=== PATIENT | male | born 1960 | race Caucasian/White ===

== ENCOUNTER → 2020-03-07 10:58 | Outpatient (BNVA) | payer SELFPAY | PROVIDERS: Family Provider Nurse Practitioner Family; PCP Nurse Practitioner Family; Visit Provider Emergency Medicine | DX: Z20.828 Contact with and (suspected) exposure to other viral communicable diseases (principal) | CPT/HCPCS: 87635 ==

== ENCOUNTER 2020-08-13 14:14 | Observation (INO) | payer SELFPAY ==
[2020-08-13] VITALS (16 sets, daily range): BP systolic 103–129; BP diastolic 61–81; PULSE 92–108; RESP 18–25; TEMP 36.3–37.6; O2SAT 91–99; BMI 27.4
--- NOTE | 2020-08-13 14:33 | CTR_ITS ---
PROCEDURE INFORMATION: Exam: CT Abdomen And Pelvis With Contrast Exam date and time: 08/13/2020 2:33 PM Age: 59 years old Clinical indication: Abdominal pain; Localized; Lower; Additional info: Sudden onset severe abd pain TECHNIQUE: Imaging protocol: Computed tomography of the abdomen and pelvis with contrast. Total images: 218 Radiation optimization: All CT scans at this facility use at least one of these dose optimization techniques: automated exposure control; mA and/or kV adjustment per patient size (includes targeted exams where dose is matched to clinical indication); or iterative reconstruction. Contrast material: OMNI 300; Contrast volume: 95 ml; Contrast route: INTRAVENOUS (IV); COMPARISON: CR XR chest 1V portable [id number] 08/13/2020 4:01 PM RADIATION DOSE METRICS: Total DLP (mGy-cm): 786.93 FINDINGS: Lungs: Limited assessment of the lung bases fails to reveal evidence for active cardiopulmonary process. Liver: No visible hepatic mass or cystic structure. Gallbladder and bile ducts: Two small gallstones averaging 5 mm each. No gallbladder wall thickening or pericholecystic fluid. No intra or extrahepatic biliary ectasia. Pancreas: Pancreas is unremarkable. No visible pancreatic ductal ectasia. Spleen: Spleen unremarkable. Adrenal glands: Adrenal glands unremarkable. Kidneys and ureters: No hydronephrosis or perinephric fluid bilaterally. Simple right renal cortical cysts the largest inferior pole maximum diameter 28 mm. No follow-up recommended. No visible nephrolithiasis bilaterally. No visible ureterolithiasis. Stomach and bowel: Mild diverticulosis coli without visible evidence for acute diverticulitis. Nonobstructive bowel pattern. Appendix: Findings of acute uncomplicated appendicitis. The appendix is inflamed without abscess or extraluminal gas. Mild periappendiceal fat inflammatory response. Intraperitoneal space: No visible pneumoperitoneum or intraperitoneal ascites. Vasculature: Portal vein patent. The abdominal aorta is nonaneurysmal. Lymph nodes: Unremarkable. No enlarged lymph nodes. Urinary bladder: Urinary bladder unremarkable. Reproductive: Mild prostate hypertrophy. Bones/joints: Pectus excavatum with mediastinal shift to the right. No visible active or acute osseous pathology. Soft tissues: Bilateral inguinal hernias containing fat only. Other findings: No visible significant adynamic or reactive ileus. CT/CT abdomen pelvis w con* [id number] IMPRESSION: 1. Findings of acute uncomplicated appendicitis. The appendix is inflamed without abscess or extraluminal gas. Mild periappendiceal fat inflammatory response. 2. Cholelithiasis. 3. Mild diverticulosis coli without visible evidence for acute diverticulitis. COMMENTS: Consistent with the [employer]'s Incidental Findings Committee white paper (J Am Sangeeta Radiol 2018): Any incidental renal lesion less than 1 cm or classified as too small to characterize, or any incidental cystic renal lesion characterized as simple-appearing, is likely benign. No follow-up imaging is recommended for these lesions per consensus recommendations based on imaging criteria. Radiation Dose CTDIVOL = (mGy): DLP = 786.93 (mGy-cm)
--- NOTE | 2020-08-13 14:34 | W.ED.ABDPA2 ---
HPI - Abdominal Pain General: Chief Complaint: Abdominal Pain Stated Complaint: lower abdominal pain Time Seen by Provider: 08/13/20 14:30 History of Present Illness: HPI narrative: Patient arrived via ambulance with complaint of severe sudden onset abdominal pain that started at 0 300 this morning with no relief. Patient did receive some Zofran morphine ambulance he said that helped very little. Complains about pain being suprapubic area. Denies any health problems. Says bowel and bladder seem to be working fine denies fever chills. MD elicited complaint: abdominal pain Pertinent past history: none Onset (ago): hour(s) Pain Consistency: constant Location: Suprapubic Severity: severe Quality: aching Radiation: none Migration to: no migration Exacerbating factors: movement Relieving factors: nothing Associated Symptoms: Reports nausea; Denies chills and fever(s) Review of Systems Const: Denies: fever(s), chills or body aches Eyes: Denies: change in vision or blurry vision ENMT: Denies: throat pain or nasal congestion Card: Denies: chest pain or dyspnea on exertion Resp: Denies: dyspnea, productive cough or non-productive cough GI: Reports: abdominal pain and nausea : Denies: difficulty urinating Musc: Denies: extremity pain Skin/Breast: Denies: rash Neuro: Denies: headache(s) Psych: Denies: anxiety or depression David/Lymph: Denies: easy bruising [facility] ED PFSH: Surgical History (Updated 08/13/20 @ 18:04 by Bebeto Sal MD) S/P laparoscopic appendectomy (08/13/20) S/P nasal surgery Physical Exam Const: COMMON NORMALS: no acute distress, average body habitus and patient oriented x3 HENMT: COMMON NORMALS: normocephalic HEAD & SCALP: normal to inspection and normocephalic FACE & SINUS: normal facial exam Eye: COMMON NORMALS: conjunctivae normal GENERAL EYE: appearance normal, both eyes and all related structures CONJUNCTIVA: Yes conjunctivae normal Neck/C-Spine: COMMON NORMALS: no JVD Chest: COMMONS NORMALS: normal inspection of the chest Resp: COMMON NORMALS: normal respiratory effort and clear to auscultation bilaterally AUSCULTATION: clear to auscultation bilaterally Cardio: COMMON NORMALS: no JVD, regular rate and regular rhythm RATE: regular rate RHYTHM: regular rhythm GI: AUSCULTATION: Yes Hypoactive bowel sounds present PALPATION: Yes Tenderness to palpation present (GI) (Diffuse tenderness more centered suprapubic area) PERCUSSION: dullness to percussion (Tenderness with percussion) Extremity: COMMON NORMALS: normal to inspection and full ROM Neuro: COMMON NORMALS: patient oriented x3 Course Vital Signs: Vital signs: Vital Signs Temperature 98.4 F 08/14/20 11:15 Pulse Rate 78 08/14/20 11:15 Respiratory Rate 18 08/14/20 11:15 Blood Pressure 112/69 08/14/20 11:15 Pulse Oximetry 96 08/14/20 11:15 MDM - Abdominal Pain MDM Narrative: Medical decision making narrative: After much discussion with family and patient patient is inclined to go to surgery Dr. Paul was contacted Dr. Rivera said he will be taken patient to surgery. Lab Data: Labs: Lab Results 08/13/20 08/13/20 08/13/20 Range/Units 15:04 15:04 16:23 WBC 17.0 H (4.0-10.0) 10^3/ uL RBC 4.47 (4.1-5.3) 10^6/u L Hgb 13.4 (11.7-16.6) g/dL Hct 39.4 L (42.0-52.0) % MCV 88.1 (80-94) fL MCH 30.0 (28.0-34.0) pg MCHC 34.0 (30.0-36.0) g/dL RDW 12.7 (12.1-15.1) % Plt Count 274 (130-400) 10^3/c mm MPV 9.4 (7.4-10.4) fL Neut % (Auto) 91.5 % Lymph % (Auto) 4.1 % Blount % (Auto) 3.8 % Eos % (Auto) 0.0 % Baso % (Auto) 0.3 % Neut # (Auto) 15.55 H (1.8-7.7) 10^3/u L Lymph # (Auto) 0.7 L (0.8-4.8) 10^3/u L Blount # (Auto) 0.7 (0.2-0.9) 10^3/u L Eos # (Auto) 0.0 (0.0-0.8) 10^3/u L Baso # (Auto) 0.1 (0.0-0.1) 10^3/u L Nucleated RBC % (a uto) 0 % Nucleated RBCs # 0.0 /100WBC PT (12.1-14.9) SECO NDS INR (0.8-1.2) APTT (23.9-36.7) SECO NDS Sodium 138 (136-145) mmol/L Potassium 3.4 L (3.5-5.1) mmol/L Chloride 104 (98-107) mmol/L Carbon Dioxide 21 L (22-29) mmol/L Anion Gap 16.4 (5-19) BUN 11 (8-23) mg/dL Creatinine 0.7 (0.7-1.2) mg/dL GFR Calculation 115.0 (90-130) mL/min Glucose 149 H (65-115) mg/dL Calculated Osmolal ity 288 (285-295) mOsm/k g Lactic Acid (0.5-2.2) mmol/L Calcium 7.9 L (8.5-10.5) mg/dL Total Bilirubin 1.1 (0.15-1.2) mg/dL AST 17 (0-40) U/L ALT 17 (0-41) U/L Alkaline Phosphata se 76 (40-130) IU/L Total Protein 6.5 L (6.6-8.7) g/dL Albumin 3.9 (3.5-5.2) g/dL Globulin 2.6 (1.3-4.6) g/dL Lipase 25 (13-60) U/L Urine Color Yellow (Yellow) Urine Appearance Clear (CLEAR) Urine pH 8 H (5-7) Ur Specific Gravit y 1.010 (1.005-1.030) Urine Protein Neg (Negative) Urine Glucose (UA) Norm (Normal) Urine Ketones 2+ H (Negative) Urine Blood Neg (Negative) Urine Nitrate Negative (Negative) Urine Bilirubin Neg (Negative) Prot Sulfosalicyli c Acd Negative (Negative) Urine Urobilinogen Norm (Negative) mg/dL Ur Leukocyte Dolores ase Negative (Negative) 08/13/20 08/13/20 Range/Units 16:34 17:00 WBC (4.0-10.0) 10^3/ uL RBC (4.1-5.3) 10^6/u L Hgb (11.7-16.6) g/dL Hct (42.0-52.0) % MCV (80-94) fL MCH (28.0-34.0) pg MCHC (30.0-36.0) g/dL RDW (12.1-15.1) % Plt Count (130-400) 10^3/c mm MPV (7.4-10.4) fL Neut % (Auto) % Lymph % (Auto) % Blount % (Auto) % Eos % (Auto) % Baso % (Auto) % Neut # (Auto) (1.8-7.7) 10^3/u L Lymph # (Auto) (0.8-4.8) 10^3/u L Blount # (Auto) (0.2-0.9) 10^3/u L Eos # (Auto) (0.0-0.8) 10^3/u L Baso # (Auto) (0.0-0.1) 10^3/u L Nucleated RBC % (a uto) % Nucleated RBCs # /100WBC PT 14.30 (12.1-14.9) SECO NDS INR 1.08 (0.8-1.2) APTT 27.3 (23.9-36.7) SECO NDS Sodium (136-145) mmol/L Potassium (3.5-5.1) mmol/L Chloride (98-107) mmol/L Carbon Dioxide (22-29) mmol/L Anion Gap (5-19) BUN (8-23) mg/dL Creatinine (0.7-1.2) mg/dL GFR Calculation (90-130) mL/min Glucose (65-115) mg/dL Calculated Osmolal ity (285-295) mOsm/k g Lactic Acid 2.3 H (0.5-2.2) mmol/L Calcium (8.5-10.5) mg/dL Total Bilirubin (0.15-1.2) mg/dL AST (0-40) U/L ALT (0-41) U/L Alkaline Phosphata se (40-130) IU/L Total Protein (6.6-8.7) g/dL Albumin (3.5-5.2) g/dL Globulin (1.3-4.6) g/dL Lipase (13-60) U/L Urine Color (Yellow) Urine Appearance (CLEAR) Urine pH (5-7) Ur Specific Gravit y (1.005-1.030) Urine Protein (Negative) Urine Glucose (UA) (Normal) Urine Ketones (Negative) Urine Blood (Negative) Urine Nitrate (Negative) Urine Bilirubin (Negative) Prot Sulfosalicyli c Acd (Negative) Urine Urobilinogen (Negative) mg/dL Ur Leukocyte Dolores ase (Negative) Discharge Plan Discharge Admit Provider: Bebeto Sal Condition: Stable Coding Level of Care Code ED Substitute School Nurse for Chg Fwd Exam Comprehensive
[2020-08-13] MEDS: sodium chloride 0.9% 1,000 ML 999 ML IV (14:35)
[2020-08-13] MEDS: ondansetron 2 mg/ML SDV 2 mL 4 MG IVP (14:42)
[2020-08-13] MEDS: morphine 4 mg/mL SDV 1 mL IVP (14:42)
[2020-08-13 15:12] LABS: Basophils # 0.1 10^3/uL (0.0-0.1); Basophils % 0.3 %; Hematocrit 39.4 % (42.0-52.0); Hemoglobin 13.4 g/dL (11.7-16.6); Lymphocytes # 0.7 10^3/uL (0.8-4.8); Lymphocytes % 4.1 %; Mean Corpuscular Volume 88.1 fL (80-94); Mean Platelet Volume 9.4 fL (7.4-10.4); Monocytes # 0.7 10^3/uL (0.2-0.9); Monocytes % 3.8 %; Neutrophils # 15.55 10^3/uL (1.8-7.7); Neutrophils % 91.5 %; Nucleated Red Blood Cells % 0 %; Platelet Count 274 10^3/cmm (130-400); Red Blood Count 4.47 10^6/uL (4.1-5.3); Red Cell Distribution Width 12.7 % (12.1-15.1)
[2020-08-13 15:43] LABS: Alanine Aminotransferase 17 U/L (0-41); Albumin Level 3.9 g/dL (3.5-5.2); Alkaline Phosphatase 76 IU/L (40-130); Anion Gap 16.4 (5-19); Aspartate Amino Transferase 17 U/L (0-40); Blood Urea Nitrogen 11 mg/dL (8-23); Calcium 7.9 mg/dL (8.5-10.5); Carbon Dioxide 21 mmol/L (22-29); Chloride 104 mmol/L (98-107); Globulin 2.6 g/dL (1.3-4.6); Glucose 149 mg/dL (65-115); Lipase 25 U/L (13-60); Osmolality Calculated 288 mOsm/kg (285-295); Potassium 3.4 mmol/L (3.5-5.1); Sodium 138 mmol/L (136-145); Total Bilirubin 1.1 mg/dL (0.15-1.2); Total Protein 6.5 g/dL (6.6-8.7)
--- NOTE | 2020-08-13 16:02 | XR_ITS ---
WS: [id number] Portable AP upright chest, 08/13/2020 Clinical Data: decreased Sat Comparison: None. Findings: No nodules, masses or effusions are seen. The heart is normal. The pulmonary vascularity is not increased. No pneumonia or pneumothorax is seen. There is deformity with slight loss of left kati g volume of the upper left chest involving the left third through fifth ribs. There is a shift of th e heart and mediastinum from left to right. XR/XR chest 1V portable [id number] Impression: Negative for acute cardiopulmonary disease.
[2020-08-13] MEDS: iohexol 300 mg/mL 100 mL Btl IV (16:14)
[2020-08-13 16:51] LABS: Add Urine Microscopic? NO; Charge for UA Resulting for Rev
[2020-08-13 17:07] LABS: Bilirubin Urine Neg (Negative); Blood Urine Neg (Negative); Glucose Urine UA Norm (Normal); Ketones Urine 2+ (Negative); Leukocyte Esterase Urine Negative (Negative); Nitrate Urine Negative (Negative); Protein Urine Neg (Negative); Sulfosalicylic Acid Urine Negative (Negative); Urine Appearance Clear (CLEAR); Urine Color Yellow (Yellow); Urobilinogen Urine Norm (Negative); pH Urine 8 (5-7)
--- NOTE | 2020-08-13 17:42 | ANES.PREANE2 ---
Pre-Anesthetic Assessment Pre-Anesthetic Assessment: Height/Weight: Height 1.57 m Weight 68.039 kg Temp Pulse Resp BP Pulse Ox 98.9 F 99 18 108/67 95 08/13/20 14:15 08/13/20 16:00 08/13/20 16:00 08/13/20 16:00 08/13/20 16:00 Preop Diagnosis: Acute appendicitis Proposed Procedure: Operation Date: 08/13/20 18:20 Proposed Procedures p Laparoscopic Appendectomy(Not Applicable) - Bebeto Sal MD Familial anesthetic complications: Took awhile to wake up after a nose surgery in his 20s Was Beta Ashley taken within 24 hours: N/A Was Clonidine taken within 24 hours: N/A Last intake: Intake Last Liquid Date 08/13/20 Last Liquid Time 11:00 (tea, no milk/cream) Last Solid Date 08/12/20 Last Solid Time 18:00 Social: Social History: No alcohol and No tobacco Exam: Pre-Anes Outpt Exam: alert, oriented x 3, clear to auscultation bilaterally and regular rate & rhythm Airway: Cervical ROM: WNL MP: 4 Dentition: Full CV/HEM: Comments: Dextrocardia (mirror-heart/right sided heart) no functional limitations- Will reverse ECG placement Anesthetic Plan: ASA status: 1E Anesthesia: General Risk of > 500 ml blood loss (7ml/kg in children): No Data Anesthesia CBC & Chem 7: 08/13/20 15:04 08/13/20 15:04 Other Labs: Laboratory Results - last 48 hr 08/13/20 08/13/20 08/13/20 15:04 15:04 16:23 WBC 17.0 H RBC 4.47 Hgb 13.4 Hct 39.4 L MCV 88.1 MCH 30.0 MCHC 34.0 RDW 12.7 Plt Count 274 MPV 9.4 Neut % (Auto) 91.5 Lymph % (Auto) 4.1 Lipscomb % (Auto) 3.8 Eos % (Auto) 0.0 Baso % (Auto) 0.3 Neut # (Auto) 15.55 H Lymph # (Auto) 0.7 L Lipscomb # (Auto) 0.7 Eos # (Auto) 0.0 Baso # (Auto) 0.1 Nucleated RBC % (auto) 0 Nucleated RBCs # 0.0 Sodium 138 Potassium 3.4 L Chloride 104 Carbon Dioxide 21 L Anion Gap 16.4 BUN 11 Creatinine 0.7 GFR Calculation 115.0 Glucose 149 H Calculated Osmolality 288 Calcium 7.9 L Total Bilirubin 1.1 AST 17 ALT 17 Alkaline Phosphatase 76 Total Protein 6.5 L Albumin 3.9 Globulin 2.6 Lipase 25 Urine Color Yellow Urine Appearance Clear Urine pH 8 H Ur Specific [place] 1.010 Urine Protein Neg Urine Glucose (UA) Norm Urine Ketones 2+ H Urine Blood Neg Urine Nitrate Negative Urine Bilirubin Neg Prot Sulfosalicylic Acd Negative Urine Urobilinogen Norm Ur Leukocyte Esterase Negative Cardiac Studies: No Data to Display
[2020-08-13 17:43] LABS: INR 1.08 (0.8-1.2)
[2020-08-13 17:44] LABS: Partial Thromboplastin Time 27.3 SECONDS (23.9-36.7)
--- NOTE | 2020-08-13 17:57 | P.HP_ITS ---
Providers/Chief Complaint Chief Complaint: lower abdominal pain History of Present Illness Bal Lam is a 59 year old male to the ER after he woke up with abdominal pain this morning. Patient did not have any symptoms when he went to bed last night. He states that the pain progressively got worse during the course of the day and this was associated with nausea. Patient denies any vomiting, fevers, chills. No constipation or diarrhea. He initially thought it was secondary to yeast since his daughter had baked recently and he had a similar episode in the past. The pain subsequently never subsided and localized to the right lower quadrant, worse with physical activity, no relieving factors. Review of Systems General: Reports: 10 or more systems reviewed and unremarkable except in HPI and below Medications/Allergies Home Medications Medication Instructions Recorded Confirmed Last Taken Type ibuprofen 800 mg PO PRN 08/13/20 08/13/20 Unknown History multivitamin 1 tab PO DAILY 08/13/20 08/13/20 Unknown History Allergies Allergy/AdvReac Type Severity Reaction Status Date / Time No Known Allergies Allergy Verified 08/13/20 14:37 PFSH Acute PFSH: Surgical History S/P nasal surgery Vitals/I&O/Wt Last Vital Signs Temp 98.9 F 08/13/20 14:15 Pulse 99 08/13/20 16:00 Resp 18 08/13/20 16:00 BP 108/67 08/13/20 16:00 Pulse Ox 95 08/13/20 16:00 Weight last 48 hrs Weight 150 lb Weight 150 lb Physical Exam Narrative: EXAM NARRATIVE: HEENT: Normocephalic Eye: Sclera /conjunctiva normal Respiratory and chest: Bilateral clear breath sounds on auscultation Cardiovascular: Normal S1 and S2 heart sounds Abdomen: Soft to palpation, tender right lower quadrant, with guarding, no rigidity Neurological: Oriented to place person and time Skin: Intact, no lesions appreciated on gross exam Data : 08/13/20 15:04 08/13/20 15:04 A&P Assessment and plan (1) Acute appendicitis: 59-year-old male with 1 day history of right lower quadrant pain and nausea. WBC was noted to be 17. CT abdomen and pelvis showed acute appendicitis without any evidence of perforation Plan for laparoscopic possible open appendectomy Procedure, risks, benefits and alternatives have been discussed with the patient who wishes to proceed with surgery. Status: Acute Attestations Medical Necessity Statement*: Appendicitis requiring surgery Coding Level of Care Code Acute Canvas Goods Maker for [facility] Steve Diagnoses Acute appendicitis K35.80
[2020-08-13 18:20] LABS: Lactic Sepsis W/Reflex 2.3 mmol/L (0.5-2.2)
[2020-08-13 18:30] LABS: Reflex Lactate Order REFLEX LACTIC ORDERD
[2020-08-13] MEDS: piperacillin-tazobactam 3.375 GM in sodium chloride 0.9% (plus) 50 ML IV (19:28)
--- NOTE | 2020-08-13 20:24 | PM.OP ---
Operative Report Date of procedure: August 13, 2020 Pre-op Diagnosis: Acute appendicitis Post-op Diagnosis: Acute separative appendicitis Procedure Done: Laparoscopic appendectomy Specimens removed/disposition: Appendix Surgeon: Bebeto Sal Anesthesia: General Condition: stable Disposition: PACU Procedure: The patient was taken to the Operating Room and intubated under general anesthesia after antibiotic had been administered. Using a 15 blade, a 1-cm infraumbilical incision was made and using open Luann technique, the peritoneal cavity was entered. A 12mm port with balloon was placed and 15 mm of pneumoperitoneum was created and 10-mm 30 degree scope was introduced. Two separate 5mm ports were placed in the suprapubic area and left lower quadrant under direct visualization. The appendix was noted in the right lower quadrant and appeared acutely inflamed. There was purulent fluid noted in the paracolic gutter as well as in the pelvis. This was irrigated and suctioned out.the inflamed appendix was adherent to the lateral wall of the cecum and this was mobilized using suction welding equipment sales representative. The mesoappendix was divided using LigaSure which had been opened by mistake. Using [place] forceps, an opening was made in the mesoappendix near the base of the appendix. An Endo CARLOS stapler 45mm long 3.5mm blue load was introduced to divide the appendix at it's base. There might have been a small perforation at the base of the appendix. There was no bleeding noted and the staple line appeared intact. The right lower quadrant was irrigated with saline and an EndoCatch bag was introduced to remove the appendix. All three ports were removed under direct visualization and there was no bleeding noted on the port sites. 10 cc of 0.5% Marcaine was infiltrated at the port sites. The fascia at the umbilical port was closed using figure of eight 0-Vicryl sutures and subcutaneous tissue was approximated using 3-0 Vicryl and skin at all 3 port sites was closed using 4-0 Monocryl and Dermabond. The patient was extubated and transferred to recovery room in stable condition.
--- NOTE | 2020-08-13 20:40 | SUR.PHASEI ---
2032: patient into pacu with nc at 3L and sats at 93%. patient wakes but is drowsy. no pain per faces. dermabond to 4 sites.
[2020-08-13] MEDS: fentaNYL 50 mcg/mL INJ 2mL IVP (20:57)
--- NOTE | 2020-08-13 21:04 | SUR.PHASEI ---
2056: patient states he has pain in abd, patient still drowsy. medicated per orders. 2104: patient appears to be resting comfortably.
--- NOTE | 2020-08-13 21:39 | SUR.PHASEI ---
2119: patient taken to 278-2. patient drowsy but wakes. on 3L nc. dermabond to 4 sites intact. belongings taken to room with patient. abd soft.
[2020-08-14] VITALS (9 sets, daily range): BP systolic 106–125; BP diastolic 65–75; PULSE 71–87; RESP 16–20; TEMP 36.6–37; O2SAT 94–97
[2020-08-14] MEDS: D5-NS 0.45% + KCL 20 mEq 20 MEQ/1,000 ML BAG 100 MEQ IV ×3 (00:17→19:40)
[2020-08-14] MEDS: HYDROcodone-acetaminophen 5-325 mg Tablet 1 TAB PO ×3 (00:43→19:21)
[2020-08-14 02:50] LABS: Basophils % 0.2 %; Hematocrit 38.4 % (42.0-52.0); Hemoglobin 12.9 g/dL (11.7-16.6); Lymphocytes # 0.5 10^3/uL (0.8-4.8); Lymphocytes % 3.3 %; Mean Corpuscular HGB Conc 33.6 g/dL (30.0-36.0); Mean Corpuscular Hemoglobin 30.1 pg (28.0-34.0); Mean Corpuscular Volume 89.5 fL (80-94); Mean Platelet Volume 9.4 fL (7.4-10.4); Monocytes # 0.3 10^3/uL (0.2-0.9); Neutrophils # 15.55 10^3/uL (1.8-7.7); Nucleated Red Blood Cells % 0 %; Platelet Count 278 10^3/cmm (130-400); Red Blood Count 4.29 10^6/uL (4.1-5.3); Red Cell Distribution Width 13.4 % (12.1-15.1); White Blood Count 16.5 10^3/uL (4.0-10.0)
[2020-08-14 03:13] LABS: Anion Gap 16.2 (5-19); Blood Urea Nitrogen 9 mg/dL (8-23); Calcium 7.6 mg/dL (8.5-10.5); Carbon Dioxide 21 mmol/L (22-29); Chloride 107 mmol/L (98-107); Glomerular Filtration Rate 86.1 mL/min (90-130); Glucose 196 mg/dL (65-115); Osmolality Calculated 294 mOsm/kg (285-295); Potassium 4.2 mmol/L (3.5-5.1); Sodium 140 mmol/L (136-145)
--- NOTE | 2020-08-14 05:05 | PC.NURSE ---
Straight Cath: Attempted and not successful. Obtained coude but patient is refusing to allow assembly instructions writer to try again at this time.
[2020-08-14] MEDS: piperacillin-tazobactam 3.375 GM in sodium chloride 0.9% (plus) 50 ML IV ×3 (05:15→19:39)
[2020-08-14] MEDS: sennosides-docusate Tablet 1 TAB PO ×2 (09:08→17:57)
--- NOTE | 2020-08-14 18:34 | P.PN_ITS ---
Subjective Subjective: Interval history: Patient denies significant abdominal pain, nausea or vomiting, tolerating full liquid diet. No flatus or BM. Vitals/I&O/Wt Last Vital Signs Temp 98.5 F 08/14/20 15:27 Pulse 73 08/14/20 15:27 Resp 18 08/14/20 15:27 BP 106/65 08/14/20 15:27 Pulse Ox 95 08/14/20 15:27 08/14/20 08/14/20 08/14/20 06:59 14:59 22:59 Intake Total 935 / 985 50 / 985 Output Total 450 / 450 400 / 400 Balance -450 / 500 535 / 585 50 / 585 Weight last 48 hrs Weight 150 lb Weight 150 lb Physical Exam Narrative: EXAM NARRATIVE: Abdomen: Soft, nondistended, nontender, incision clean dry and intact Data : 08/14/20 02:36 08/14/20 02:36 A&P Assessment and plan (1) S/P laparoscopic appendectomy: Status post laparoscopic appendectomy admitted for IV antibiotics due to significant number of purulent fluid, possible perforation noted during surgery. Continue IV Zosyn Continue IV fluids Check WBC tomorrow Advance to GI soft diet today Senna S for bowel regimen If his WBC is trending down to normal hopefully can go home tomorrow on oral antibiotics. Status: Acute Attestations Medical Necessity Statement*: Acute appendicitis requiring 1 more night of inpatient stay for IV antibiotics Coding Level of Care Code Acute Utility Bill Complaints Investigator for Chg Fwd Diagnoses S/P laparoscopic appendectomy Z90.49
[2020-08-14] MEDS: simethicone 80 mg Chew PO (19:24)
[2020-08-15] MEDS: HYDROcodone-acetaminophen 5-325 mg Tablet 1 TAB PO ×2 (01:24→10:00)
[2020-08-15 02:54] LABS: Basophils % 0.1 %; Eosinophils % 0.1 %; Hematocrit 36.7 % (42.0-52.0); Hemoglobin 11.9 g/dL (11.7-16.6); Lymphocytes # 1.5 10^3/uL (0.8-4.8); Lymphocytes % 10.3 %; Mean Corpuscular HGB Conc 32.4 g/dL (30.0-36.0); Mean Corpuscular Hemoglobin 29.8 pg (28.0-34.0); Mean Corpuscular Volume 91.8 fL (80-94); Monocytes # 0.7 10^3/uL (0.2-0.9); Monocytes % 4.8 %; Neutrophils # 12.24 10^3/uL (1.8-7.7); Neutrophils % 84.4 %; Nucleated Red Blood Cells % 0 %; Platelet Count 265 10^3/cmm (130-400); Red Cell Distribution Width 14.1 % (12.1-15.1); White Blood Count 14.5 10^3/uL (4.0-10.0)
[2020-08-15 03:07] LABS: Anion Gap 13.2 (5-19); Blood Urea Nitrogen 9 mg/dL (8-23); Calcium 8.3 mg/dL (8.5-10.5); Carbon Dioxide 25 mmol/L (22-29); Chloride 106 mmol/L (98-107); Glomerular Filtration Rate 98.6 mL/min (90-130); Glucose 135 mg/dL (65-115); Osmolality Calculated 291 mOsm/kg (285-295); Potassium 4.2 mmol/L (3.5-5.1); Sodium 140 mmol/L (136-145)
[2020-08-15 03:20] VITALS: BP 129/76; PULSE 69; RESP 16; TEMP 36.9; O2SAT 94
[2020-08-15 04:13] VITALS: PULSE 66; RESP 17; O2SAT 95
[2020-08-15] MEDS: piperacillin-tazobactam 3.375 GM in sodium chloride 0.9% (plus) 50 ML IV (04:38)
[2020-08-15] MEDS: D5-NS 0.45% + KCL 20 mEq 20 MEQ/1,000 ML BAG 100 MEQ IV (05:24)
[2020-08-15 08:00] VITALS: BP 125/81; PULSE 76; RESP 18; TEMP 36.9; O2SAT 94
[2020-08-15] MEDS: sennosides-docusate Tablet 1 TAB PO (08:27)
[2020-08-15 11:32] VITALS: BP 151/83; PULSE 82; RESP 18; TEMP 37.1
[2020-08-15] MEDS: tamsulosin 0.4 mg Capsule PO (12:34)
--- NOTE | 2020-08-15 13:40 | PC.NURSE ---
Urinary Retention Pt c/o lower abdominal pain and pain with urination. Pt was only voiding 50-100 mL at a time. PVR bladder scan performed showing 700+ mL. Dr. Sal notified. Orders given to stop fluids, give 0.4 mg flomax, and insert Colmenares catheter to send home with pt and follow up with Dr. Soria. Pt and family reluctant to go home with Colmenares. This nurse educated pt and family on risks of not going home with a Colmenares when there was this much urinary retention. Pt was given some time to think about Colmenares placement. When this nurse reassessed pt, he had just urinated ~300 mL. PVR performed again, revealing 700+ mL. Pt agreeable to Colmenares placement, tolerated fair. Dr. Sal was contacted to clarify if he wanted the pt to go home on Flomax. Flomax rx called in to [facility] in [place] by this nurse. Follow up appointment made with Dr. Soria. Pt and family educated on Colmenares care. Daughter is a nurse and used to work as a DRIVER SERVICE TECHNICIAN on this floor. Everyone verbalized understanding and pt was discharged home.
[2020-08-15 14:06] VITALS: BP 151/83; PULSE 82; RESP 18; TEMP 37.1; O2SAT 98
--- NOTE | 2020-08-15 15:12 | PM.PN ---
Subjective Subjective: Interval history: Patient has been doing well, tolerating regular diet, denies any nausea or vomiting. He is complaining of lower abdominal pain and bladder scan showed 700 cc of urine. A Colmenares catheter was placed Vitals/I&O/Wt Last Vital Signs Temp 98.8 F 08/15/20 14:06 Pulse 82 08/15/20 14:06 Resp 18 08/15/20 14:06 BP 151/83 08/15/20 14:06 Pulse Ox 98 08/15/20 14:06 08/15/20 08/15/20 08/15/20 06:59 14:59 22:59 Intake Total 1383.333 / 3368.333 900 / 900 Output Total 250 / 925 1040 / 1040 Balance 1133.333 / 2443.333 -140 / -140 Weight last 48 hrs Weight 150 lb Physical Exam Narrative: EXAM NARRATIVE: Abdomen: Soft, minimally tender, nondistended, incision clean dry and intact Urinary Catheter Management^: Coude: Cath Placed During This Visit: yes Urinary Catheter Date of Insertion: 08/15/20 Urinary Catheter Time of Insertion: 13:23 Data : 08/15/20 01:50 08/15/20 01:50 A&P Assessment and plan (1) S/P laparoscopic appendectomy: Status post laparoscopic appendectomy admitted for IV antibiotics due to significant amount of purulent fluid, possible perforation noted during surgery. DC home today with oral antibiotics and Colmenares catheter Follow-up with Dr. Soria Status: Acute Attestations Medical Necessity Statement*: Status post appendectomy DC home today Coding Level of Care Code Acute Stationary Engineer Supervisor for [facility] Fwd Diagnoses S/P laparoscopic appendectomy Z90.49
--- NOTE | 2020-08-15 15:14 | P.DS_ITS ---
Discharge Providers Date of Admission: 08/13/20 21:15 Date of Discharge: August 15, 2020 Attending Provider at Admission: Bebeto Sal MD Attending Provider at Discharge: Bebeto Sal MD Diagnoses at Discharge Discharge Diagnosis (1) S/P laparoscopic appendectomy: Status: Acute Reason for Visit Reason for Visit: lower abdominal pain Hospital Course Hospital Course Bal Lam is a 59 year old male to the ER after he woke up with abdominal pain this morning. Patient did not have any symptoms when he went to bed last night. He states that the pain progressively got worse during the course of the day and this was associated with nausea. Patient denies any vomiting, fevers, chills. No constipation or diarrhea. He initially thought it was secondary to yeast since his daughter had baked recently and he had a similar episode in the past. The pain subsequently never subsided and localized to the right lower quadrant, worse with physical activity, no relieving factors. Patient was admitted to the hospital for IV antibiotics. At time of discharge he had been on IV antibiotics for 48 hours and his WBC was trending down. Patient is afebrile and tolerating a regular diet. His incisions are clean dry and intact. On the day of discharge he was noted to have 700 cc on bladder scan and therefor e a Colmenares catheter was placed since this was a second episode of urinary retention during current hospitalization. Physical Exam Urinary Catheter Management^: Coude: Cath Placed During This Visit: yes Urinary Catheter Date of Insertion: 08/15/20 Urinary Catheter Time of Insertion: 13:23 Discharge Data Data Completed and Pending: Completed Studies During Hospitalization Category Date Time Status CT abdomen pelvis w con* [id number] Stat Cat Scan 08/13/20 14:33 Completed XR chest 1V naomi ble [id number] Stat Exams 08/13/20 16:02 Completed Pathology: Surgic al [PTH] Routine Pth 08/13/20 20:18 Completed Pending at discharge Category Date Time Status ES surgery / GI i mages Routine Exams 08/13/20 19:13 Taken Labs from last 24 hours 08/15/20 08/15/20 01:50 01:50 WBC 14.5 H RBC 4.00 L Hgb 11.9 Hct 36.7 L MCV 91.8 MCH 29.8 MCHC 32.4 RDW 14.1 Plt Count 265 MPV 10.0 Neut % (Auto) 84.4 Lymph % (Auto) 10.3 [place] % (Auto) 4.8 Eos % (Auto) 0.1 Baso % (Auto) 0.1 Neut # (Auto) 12.24 H Lymph # (Auto) 1.5 [place] # (Auto) 0.7 Eos # (Auto) 0.0 Baso # (Auto) 0.0 Nucleated RBC % (a uto) 0 Nucleated RBCs # 0.0 Sodium 140 Potassium 4.2 Chloride 106 Carbon Dioxide 25 Anion Gap 13.2 BUN 9 Creatinine 0.8 GFR Calculation 98.6 Glucose 135 H Calculated Osmolal ity 291 Calcium 8.3 L Vitals: Last Vital Signs Temp 98.8 F 08/15/20 14:06 Pulse 82 08/15/20 14:06 Resp 18 08/15/20 14:06 BP 151/83 08/15/20 14:06 Pulse Ox 98 08/15/20 14:06 Discharge Plan Discharge Patient Disposition: Home Condition: Stable Prescriptions: New hydrocodone-acetaminophen 5-325 mg tablet 1 tab PO Q6H PRN (Reason: pain) Qty: 20 RF: 0 Zofran 4 mg tablet 4 mg PO Q6H PRN (Reason: nausea and vomiting) Qty: 20 RF: 0 Colace 100 mg capsule 100 mg PO BID Qty: 30 RF: 0 Flagyl 500 mg tablet 500 mg PO Q8H 5 Days Qty: 15 RF: 0 levofloxacin 750 mg tablet 750 mg PO DAILY 5 Days RF: 0 Continued multivitamin Tablet 1 tab PO DAILY RF: 0 ibuprofen 200 mg Tablet 800 mg PO PRN RF: 0 Discharge Orders: Discharge Order (Routine); Ordered 08/15/20 Ordered By: Bebeto Sal Referrals: Andi Soria MD [Physician] - 08/28/20 7:30 am Bebeto Sal MD [Physician] - 09/15/20 8:35 am (You have an appointment with Dr. Sal on September 07 at 8:35.) Patient Instructions: Hydrocodone/Acetaminophen (By mouth), Metronidazole (By mouth), Laxative, Stool Softeners (By mouth), Ondansetron (By mouth), Levofloxacin (By mouth), Tamsulosin (By mouth), Appendicitis (GEN), Colmenares Catheter Placement and Care (DC), Laparoscopic Appendectomy (DC), Opioid Safety Activity Restrictions/Additional Instructions: Diet Advance to normal diet as tolerated, increase fluid intake as much as possible. Activity Avoid strenuous activity for 2 weeks but continue with daily activities including walking as tolerated. Do not lift more than 10 pounds for 2 weeks Return to work/school You can return to work/ school whenever you feel ready as long as you don?t have to lift more than 10 pounds at work. If you have paperwork that needs to be completed for time off from work, please contact my office Driving You can resume driving once you stop using narcotic pain medications, and transition to non-opioid pain medications like Tylenol, Motrin, Aleve, etc. Medications Pain Take opioid pain medications as prescribed and transition to non-opioid pain medications like Tylenol, Motrin, Aleve etc. over the next few days. The goal of the pain medications is to make the pain bearable and not to be pain free since you recently had surgery. Resume all home medications after surgery as per the medication reconciliation list Nausea Nausea is common after surgery, take nausea medications as needed and stay on a liquid bland diet until nausea resolves. Constipation The combination of surgery, anesthesia and pain medications can result in constipation. Take stool softeners as prescribed. If you do not have a bowel movement in 3 days, please take an [id number] laxative like MiraLAX to address the constipation. Shower It is ok to shower but avoid getting the wound wet for 48 hours after surgery. Do not soak in bathtub, swimming pool or hot tub for 2 weeks. Wound care If glue has been used on your incisions after surgery, the glue on the incision will peel slowly over the next two weeks. The stitches used are dissolvable and will not need to be removed. Do not apply antibiotics or other medications on the incision Problems with the wound: you can develop some redness around the incision from bruising after surgery. If there is increasing pain, redness, tenderness around the incision with or without drainage, please contact my office to rule out an infection. Sometimes the skin at the incisions can separate, resulting in reopening of the wound. Cover the wound with antibiotic cream and sterile dressings and contact my office. Contact physician Call the office at [phone] during office hours or go the Emergency Room ?Fever to 100.4 or greater ?Shaking chills ?Pain that increases over time ?Redness, warmth, or pus draining from incision sites ?Persistent nausea or inability to take in liquids Stand Alone Forms: Work/School Release Discharge Attestations Time Spent in Discharge Care*: less than 30 min Quality Metrics Clinical Quality Measures During this hospital stay, did patient experience: None Coding Level of Care Code Acute Chg FW DC note Diagnoses S/P laparoscopic appendectomy Z90.49
== END 2020-08-15 14:07 | disposition home or self-care (01) ==
LOC: ER 16:50 → OPS 16:57 → MEDSURG 21:17
PROVIDERS: Admitting Provider Surgery; Emergency Provider Nurse Practitioner Family; Visit Provider Surgery
PROC: 0DTJ4ZZ Resection of Appendix, Percutaneous Endoscopic Approach (ICD-10-PCS; CPT 44970; principal; 2020-08-13 18:00)
DX: K35.80 Unspecified acute appendicitis (principal)
CPT/HCPCS: 36415; 51702; 51798; 71045; 74177; 80048; 80053; 81003; 83605; 83690; 85025; 85610; 85730; 88304; 96365; 96366; 96367; 96374; 96375; 99285; G0378; J0330; J1100; J2250; J2270; J2405; J2543; J2704; J2710; J3010; J3490; J7030; Q9967

== ENCOUNTER → 2020-10-20 15:10 | Outpatient (BNVA) | payer SELFPAY | PROVIDERS: PCP Urology; Visit Provider Nurse Practitioner Family | DX: R30.0 Dysuria (principal); N40.1 Benign prostatic hyperplasia with lower urinary tract symptoms; N99.89 Other postprocedural complications and disorders of genitourinary system; R31.9 Hematuria, unspecified; R33.8 Other retention of urine; N39.0 Urinary tract infection, site not specified | CPT/HCPCS: 80053; 81000; 85025 ==

== ENCOUNTER 2023-06-23 18:36 | Emergency (ER) | payer BC, SELFPAY ==
[2023-06-23] VITALS (8 sets, daily range): BP systolic 112–147; BP diastolic 68–88; PULSE 80–94; RESP 16; TEMP 36.7; O2SAT 96–99
--- NOTE | 2023-06-23 18:47 | ED_ITS ---
HPI - Male Genitourinary 2 General: Chief complaint: Urogenital-Male Stated complaint: ABD Pain Time Seen by Provider: 06/23/23 18:45 History of Present Illness: Patient has been having some lower abdominal pain and pressure for the last day or so. He is been hearing some gurgling. He gone to his primary and they checked a urine it was negative. He has been taken some Pyridium. No fevers. No nausea or vomiting. Pain in his low abdomen. More to the right than to the left. He has no known history of diverticulitis. He has never had a colonoscopy. No chest pain. No fevers. No shortness of breath. Review of Systems 2 Narrative: Constitutional symptoms: Negative except as documented in HPI. Skin symptoms: Negative except as documented in HPI. Eye symptoms: Negative except as documented in HPI. ENMT symptoms: Negative except as documented in HPI. Respiratory symptoms: Negative except as documented in HPI. Cardiovascular symptoms: Negative except as documented in HPI. Gastrointestinal symptoms: Negative except as documented in HPI. Genitourinary symptoms: Negative except as documented in HPI. Musculoskeletal symptoms: Negative except as documented in HPI. Neurologic symptoms: Negative except as documented in HPI. Psychiatric symptoms: Negative except as documented in HPI. Endocrine symptoms: Negative except as documented in HPI. PFS ED 2 PFSH: Surgical History S/P laparoscopic appendectomy (08/13/20) S/P nasal surgery Family History Mother , at age 91 No problems noted. Father , at age 77 No problems noted. Social History Smoking and tobacco/nicotine status: never used tobacco/nicotine Second hand smoke exposure: No Alcohol intake: never Substance/Drug Use: never Caregiver/support person: Yes Lives independently: Yes Household members: spouse Marital status: Current occupational status: employed Current occupation: [employer] Current gender identity: Male Special black needs: No Agree to transfusion: Yes Physical Exam 2 Narrative: EXAM NARRATIVE: General: Alert, no acute distress. Skin: Warm, dry. Head: Normocephalic, atraumatic. Neck: Supple, trachea midline. Eye: Extraocular movements are intact. Ears, nose, mouth and throat: Tacky oral mucosa Cardiovascular: Regular, Normal peripheral perfusion. Respiratory: Lungs are clear to auscultation, respirations are non-labored, breath sounds are equal, Symmetrical chest wall expansion. Gastrointestinal: Soft, some mild suprapubic tenderness,, Non distended, Normal bowel sounds. Musculoskeletal: Normal ROM, no deformity. Neurological: Alert and oriented, No focal neurological deficit observed. Psychiatric: Cooperative, appropriate mood & affect. Course 2 Vital Signs: Vital signs: Vital Signs Temperature 98.1 F 06/23/23 18:41 Pulse Rate 80 06/23/23 19:17 Respiratory Rate 16 06/23/23 19:17 Blood Pressure 136/73 06/23/23 19:17 Pulse Oximetry 97 06/23/23 19:17 Oxygen Delivery Me thod Room Air 06/23/23 18:41 MDM - Male Medical Decision Making Medical decision making: Differential diagnosis including but not limited to and based on the above HPI, review of systems and physical exam: Would have concern for UTI, urinary retention, could also have colitis or diverticulitis. He also states that he is allergic to yeast and so this could just be an upset stomach secondary to that. Orders placed to evaluate differential diagnosis based on the above differential, HPI and physical exam Bladder scan showed only 120 mL Lab Review: Laboratory results were reviewed and interpreted by myself the emergency room physician. Patient has some leukocytosis with a white count of 12. Hemoglobin is normal at 14.7. BUN and creatinine are normal at 9 and 0.8. His CRP is quite elevated at 86. His liver enzymes are not elevated. His urinalysis shows no signs of infection. CT of the abdomen pelvis with contrast: Focal inflammatory stranding surrounding a diverticulum at the junction of the sigmoid and descending colon which is consistent with diverticulitis. Radiologist does recommend follow-up and I discussed colonoscopy with the patient once this illness has resolved. This was reviewed and interpreted by myself the emergency room physician. I also reviewed the radiology report. I reviewed the patient's medical record. Reexamination: Patient remained stable. No increased work of breathing no altered mental status. We discussed diet with diverticulitis. We discussed the findings and that he needs follow-up colonoscopy. He expresses understanding. I also discussed this with his family. Assessment and plan: Diverticulitis Dehydration -IV Cipro, Flagyl and a normal saline bolus in the emergency room - Discharged home - Discussed findings and plan with patient. Answered any questions. - All laboratory values were reviewed and interpreted personally by myself, the ER physician - All imaging was reviewed and interpreted personally by myself, the ER physician. - Evaluation and treatment of this problem were appropriate in the emergency setting Lab Data 06/23/23 18:55 06/23/23 18:55 Radiology Impressions Abdomen/Pelvis CT 06/23/23 19:47 IMPRESSION: 1. Focal inflammatory stranding surrounding a diverticulum at the junction of the sigmoid and descending colon, consistent with acute diverticulitis. As an underlying malignancy cannot be entirely excluded, a follow-up examination after a course of treatment is recommended if clinically warranted. 2. Cholelithiasis without evidence of acute cholecystitis. 3. Hepatic steatosis 4. Bilateral inguinal scrotal fat hernia Laboratory Results WBC 11.75 10^3/uL (3.29-11.43) H 06/23/23 18:55 RBC 4.98 10^6/uL (3.85-5.65) 06/23/23 18:55 Hgb 14.70 g/dL (11.27-16.99) 06/23/23 18:55 Hct 43.6 % (37-53) 06/23/23 18:55 MCV 87.6 fl (82-101) 06/23/23 18:55 MCH 29.5 pg (27-33) 06/23/23 18:55 MCHC 33.7 g/dL (30-55) 06/23/23 18:55 RDW 12.8 % (12.1-15.1) 06/23/23 18:55 Plt Count 332 10^3/cmm (157-399) 06/23/23 18:55 MPV 9.5 fL (7.4-10.4) 06/23/23 18:55 Neut % (Auto) 75.9 % 06/23/23 18:55 Lymph % (Auto) 16.5 % 06/23/23 18:55 [place] % (Auto) 6.6 % 06/23/23 18:55 Eos % (Auto) 0.4 % 06/23/23 18:55 Baso % (Auto) 0.3 % 06/23/23 18:55 Neut # (Auto) 8.91 10^3/uL (1.8-7.7) H 06/23/23 18:55 Lymph # (Auto) 1.9 10^3/uL (0.8-4.8) 06/23/23 18:55 [place] # (Auto) 0.8 10^3/uL (0.2-0.9) 06/23/23 18:55 Eos # (Auto) 0.1 10^3/uL (0.0-0.8) 06/23/23 18:55 Baso # (Auto) 0.0 10^3/uL (0.0-0.1) 06/23/23 18:55 Nucleated RBC % (auto) 0 % 06/23/23 18:55 Nucleated RBCs # 0.0 /100WBC 06/23/23 18:55 Sodium 137 mmol/L (136-145) 06/23/23 18:55 Potassium 3.9 mmol/L (3.5-5.1) 06/23/23 18:55 Chloride 100 mmol/L (98-107) 06/23/23 18:55 Carbon Dioxide 23 mmol/L (22-29) 06/23/23 18:55 Anion Gap 17.9 (5-19) 06/23/23 18:55 BUN 9 mg/dL (8-23) 06/23/23 18:55 Creatinine 0.8 mg/dL (0.7-1.2) 06/23/23 18:55 GFR Calculation 97.6 mL/min (90-130) 06/23/23 18:55 Glucose 110 mg/dL (65-115) 06/23/23 18:55 Calculated Osmolality 283 mOsm/kg (285-295) L 06/23/23 18:55 Calcium 9.0 mg/dL (8.5-10.5) 06/23/23 18:55 Total Bilirubin 0.9 mg/dL (0.15-1.2) 06/23/23 18:55 AST 40 U/L (0-40) 06/23/23 18:55 ALT 64 U/L (0-41) H 06/23/23 18:55 Alkaline Phosphatase 108 U/L (40-130) 06/23/23 18:55 C-Reactive Protein 85.7 mg/L (0.0-4.9) H 06/23/23 18:55 Total Protein 8.6 g/dL (6.6-8.7) 06/23/23 18:55 Albumin 4.5 g/dL (3.5-5.2) 06/23/23 18:55 Globulin 4.1 g/dL (1.3-4.6) 06/23/23 18:55 Lipase 34 U/L (13-60) 06/23/23 18:55 Urine Color [place] (Yellow) A 06/23/23 18:55 Urine Appearance Clear (CLEAR) 06/23/23 18:55 Urine pH 7 (5-7) 06/23/23 18:55 Ur Specific [place] 1.015 (1.005-1.030) 06/23/23 18:55 Urine Protein 1+ (Negative) H 06/23/23 18:55 Urine Glucose (UA) Norm (Normal) 06/23/23 18:55 Urine Ketones 1+ (Negative) H 06/23/23 18:55 Urine Blood Neg (Negative) 06/23/23 18:55 Urine Nitrate Not tested (Negative) A 06/23/23 18:55 Urine Bilirubin 1+ (Negative) H 06/23/23 18:55 Urine Urobilinogen 4 mg/dL (Negative) H 06/23/23 18:55 Ur Leukocyte Esterase Negative (Negative) 06/23/23 18:55 Urine RBC None /hpf (0-2) 06/23/23 18:55 Urine WBC Rare /hpf (0-5) 06/23/23 18:55 Ur Squamous Epith Cells None /hpf (0-5) 06/23/23 18:55 Amorphous Sediment Not Reportable 06/23/23 18:55 Urine Bacteria None /hpf (NONE) 06/23/23 18:55 Urine Mucus None /hpf 06/23/23 18:55 All radiology interpretation(s) finalized by discharge Discharge Plan Discharge Patient Disposition: Home Clinical Impression: Diverticulitis, Dehydration Condition: Stable Prescriptions: New metronidazole 500 mg tablet 500 mg PO Q8H 10 Days Qty: 30 0RF ciprofloxacin HCl 500 mg tablet 500 mg PO BID 10 Days Qty: 20 0RF polyethylene glycol 3350 [Miralax] 17 gram/dose powder 17 g PO DAILY Qty: 510 0RF Rx Instructions: Take 1 scoop daily while taking pain medications. hydrocodone-acetaminophen 5-325 mg tablet 1 tab PO Q6H PRN (Reason: pain) Qty: 20 0RF No Action albuterol sulfate [ProAir HFA] 90 mcg/actuation HFA aerosol inhaler 2 puff inhalation QID PRN (Reason: shortness of breath or wheezing) Qty: 8.5 5RF tamsulosin 0.4 mg capsule 0.8 mg PO DAILY 90 Days Qty: 180 1RF fluconazole 150 mg tablet 150 mg PO DAILY Qty: 1 0RF phenazopyridine [Pyridium] 200 mg tablet 200 mg PO TID PRN (Reason: pain) Qty: 6 0RF Discharge Orders: Discharge ED (Routine); Ordered 06/23/23 Ordered By: Belia Betancur Referrals: Lupis Mccarthy MD [Primary Care Provider] - 4-7 days Discharge Diet: As Directed Discharge Activity: Increase activity as tolerated Patient Instructions: Diverticulitis (ED), Diverticulitis Diet (ED), Opioid Safety Activity Restrictions/Additional Instructions: Take antibiotics as instructed. Thank you for choosing [facility] for your healthcare needs today. Please realize this is an emergency room and that we are providing you with a medical screening exam and this may not be complete and all inclusive of all the testing and or work up that you may need to determine your ailment or severity of your illness. You have been screened and evaluated and felt safe for discharge. Health conditions do change or evolve sometimes and as such it is important that you follow up with your Primary Doctor to be re checked, 3-5 days is a general good time frame for follow up. You are always welcome to return to the ED for re assessment if your symptoms are worsening or you have new concerns Coding Level of Care Code ED Field Technical Support Consultant for Rachele Wilson
[2023-06-23 19:04] LABS: Basophils % 0.3 %; Eosinophils # 0.1 10^3/uL (0.0-0.8); Eosinophils % 0.4 %; Hematocrit 43.6 % (37-53); Lymphocytes # 1.9 10^3/uL (0.8-4.8); Lymphocytes % 16.5 %; Mean Corpuscular HGB Conc 33.7 g/dL (30-55); Mean Corpuscular Hemoglobin 29.5 pg (27-33); Mean Corpuscular Volume 87.6 fl (82-101); Mean Platelet Volume 9.5 fL (7.4-10.4); Monocytes # 0.8 10^3/uL (0.2-0.9); Monocytes % 6.6 %; Neutrophils # 8.91 10^3/uL (1.8-7.7); Neutrophils % 75.9 %; Nucleated Red Blood Cells % 0 %; Platelet Count 332 10^3/cmm (157-399); Red Blood Count 4.98 10^6/uL (3.85-5.65); Red Cell Distribution Width 12.8 % (12.1-15.1); White Blood Count 11.75 10^3/uL (3.29-11.43)
[2023-06-23 19:23] LABS: Blood Urine Neg (Negative); Glucose Urine UA Norm (Normal); Ketones Urine 1+ (Negative); Nitrate Urine Not Tested (Negative); Protein Urine 1+ (Negative); Specific Gravity, Urine 1.015 (1.005-1.030); Urine Appearance Clear (CLEAR); Urine Color Orange (Yellow); pH Urine 7 (5-7)
[2023-06-23 19:24] LABS: Add Urine Microscopic? YES; Bilirubin Urine 1+ (Negative); Leukocyte Esterase Urine Negative (Negative); Urobilinogen Urine 4 mg/dL (Negative)
[2023-06-23 19:28] LABS: WBC Urine RARE /hpf (0-5)
[2023-06-23 19:29] LABS: Add Urine Culture? No
[2023-06-23 19:30] LABS: Alanine Aminotransferase 64 U/L (0-41); Albumin Level 4.5 g/dL (3.5-5.2); Alkaline Phosphatase 108 U/L (40-130); Anion Gap 17.9 (5-19); Aspartate Amino Transferase 40 U/L (0-40); Blood Urea Nitrogen 9 mg/dL (8-23); C Reactive Protein 85.7 mg/L (0.0-4.9); Carbon Dioxide 23 mmol/L (22-29); Chloride 100 mmol/L (98-107); Creatinine Clr Calc Pharmacy 76.5375; Globulin 4.1 g/dL (1.3-4.6); Glomerular Filtration Rate 97.6 mL/min (90-130); Glucose 110 mg/dL (65-115); Lipase 34 U/L (13-60); Osmolality Calculated 283 mOsm/kg (285-295); Potassium 3.9 mmol/L (3.5-5.1); Sodium 137 mmol/L (136-145); Total Bilirubin 0.9 mg/dL (0.15-1.2); Total Protein 8.6 g/dL (6.6-8.7)
--- NOTE | 2023-06-23 19:47 | CTR_ITS ---
PROCEDURE INFORMATION: Exam: CT Abdomen And Pelvis With Contrast Exam date and time: 06/23/2023 8:09 PM Age: 62 years old Clinical indication: Abdominal pain; Generalized; Prior surgery; Surgery date: 6+ months; Surgery type: Appy; Patient HX: Gen abd pain, patient says it feels like gas that he cant pass, normal bm; Additional info: Lower abdominal pain TECHNIQUE: Imaging protocol: Computed tomography of the abdomen and pelvis with contrast. Radiation optimization: All CT scans at this facility use at least one of these dose optimization techniques: automated exposure control; mA and/or kV adjustment per patient size (includes targeted exams where dose is matched to clinical indication); or iterative reconstruction. Contrast material: OMNI 350; Contrast volume: 80 ml; Contrast route: INTRAVENOUS (IV); COMPARISON: CT abdomen pelvis w con* [id number] 08/13/2020 4:11 PM RADIATION DOSE METRICS: Total DLP (mGy-cm): 376 FINDINGS: Diaphragm: There is a small hiatal hernia. Liver: The liver is diffusely decreased in density, compatible with hepatic steatosis. Gallbladder and bile ducts: Multiple gallstones are present. No pericholecystic inflammatory changes to suggest cholecystitis. Pancreas: The pancreas is unremarkable. Spleen: The spleen is unremarkable. Adrenal glands: Normal. No mass. Kidneys and ureters: Normal. No hydronephrosis. Stomach and bowel: Focal inflammatory stranding surrounding a diverticulum at the junction of the sigmoid and descending colon, consistent with acute diverticulitis. Appendix: There has been an appendectomy. Intraperitoneal space: Unremarkable. No free air. No significant fluid collection. Vasculature: Unremarkable. No abdominal aortic aneurysm. Lymph nodes: Unremarkable. No enlarged lymph nodes. Urinary bladder: Unremarkable as visualized. Reproductive: Unremarkable as visualized. Bones/joints: Unremarkable. No acute fracture. Soft tissues: Bilateral inguinal fat hernia Other findings: Two cortical cysts are seen on the right with a small low-density, too small to characterize. CT/CT abdomen pelvis w con* [id number] IMPRESSION: 1. Focal inflammatory stranding surrounding a diverticulum at the junction of the sigmoid and descending colon, consistent with acute diverticulitis. As an underlying malignancy cannot be entirely excluded, a follow-up examination after a course of treatment is recommended if clinically warranted. 2. Cholelithiasis without evidence of acute cholecystitis. 3. Hepatic steatosis 4. Bilateral inguinal scrotal fat hernia
[2023-06-23] MEDS: iohexol 350 mg/mL 500 mL Btl (per mL) IV (20:10)
[2023-06-23] MEDS: sodium chloride 0.9% 1,000 ML 999 ML IV (20:57)
[2023-06-23] MEDS: ciprofloxacin 400 MG/200 ML PREMIX 200 MG IV (20:57)
[2023-06-23] MEDS: metroNIDAZOLE IV 500 MG/100 ML PREMIX 100 MG IV (21:48)
[2023-06-23] MEDS: morphine 4 mg/mL SDV 1 mL IVP (22:12)
== END 2023-06-23 22:57 | disposition home or self-care (01) ==
PROVIDERS: Emergency Medicine; Emergency Provider Emergency Medicine; PCP Family Medicine
DX: K57.32 Diverticulitis of large intestine without perforation or abscess without bleeding (principal); E86.0 Dehydration
CPT/HCPCS: 51798; 74177; 80053; 81000; 81001; 83690; 85025; 86140; 96365; 96367; 96375; 99285; J0744; J2270; J3490; J7030; Q9967